=== PATIENT | female | born 1940 | race Caucasian/White ===

== ENCOUNTER → 2022-02-15 11:40 | Outpatient (CLI) | payer MEDICARE, OTHER, SELFPAY ==
[2022-02-15 13:12] LABS: COVID19 -Nasal RAPID POSITIVE (Negative)
== END ==
PROVIDERS: Physician Assistant Medical; PCP Family Medicine; Referring Provider Orthopaedic Surgery; Visit Provider Orthopaedic Surgery
DX: U07.1 COVID-19 (principal)
CPT/HCPCS: 87635; C9803

== ENCOUNTER → 2022-04-04 10:42 | Outpatient (CLI) | payer MEDICARE, OTHER, SELFPAY ==
[2022-04-04 13:54] LABS: COVID19 -Nasal RAPID Negative (Negative)
== END ==
PROVIDERS: PCP Family Medicine; Referring Provider Orthopaedic Surgery; Visit Provider Orthopaedic Surgery
DX: Z20.822 Contact with and (suspected) exposure to COVID-19 (principal)
CPT/HCPCS: 87635; C9803

== ENCOUNTER 2022-04-06 07:14 | Day surgery (SDC) | payer MEDICARE, OTHER, SELFPAY ==
[2022-04-06] VITALS (14 sets, daily range): BP systolic 109–157; BP diastolic 51–87; PULSE 63–89; RESP 8–17; TEMP 35.4–36.8; O2SAT 95–98; BMI 29.5
--- NOTE | 2022-04-06 | DI.RAD.S_ITS ---
PROCEDURE: XR HIP W PEL IF DONE RT 2V INDICATIONS: POST OP TOTAL RIGHT HIP TECHNIQUE: 2 view(s) of the hip acquired. COMPARISON: [facility], [facility], XR HIP W PEL IF DONE RT 2V, 04/06/2022, 10:00. FINDINGS: Bones: Patient is status post right hip arthroplasty, with hardware components in expected positions. The hip joint appears congruent. The visualized bony structures appear intact. Soft tissues: Overlying postoperative changes are noted. No suspicious soft tissue densities. IMPRESSION: Total right hip arthroplasty in good position Approved by: Wilbur Huang M.D. on 04/06/2022 at 10:23
--- NOTE | 2022-04-06 06:00 | DI.RAD.S_ITS ---
PROCEDURE: XR HIP W PEL IF DONE RT 2V INDICATIONS: ANTERIOR TOTAL RIGHT HIP TECHNIQUE: 5 intraoperative fluoroscopic images obtained. COMPARISON: None. FINDINGS: Intraoperative fluoroscopic images are obtained from right hip arthroplasty. The hardware appears intact. IMPRESSION: Intraprocedural fluoroscopy was provided for guidance and anatomical localization. Please see the procedure report for further details. Dictated by: Lasha Sumner M.D. on 04/06/2022 at 11:12 Approved by: Lasha Sumner M.D. on 04/06/2022 at 11:14
[2022-04-06] MEDS: VANCOMYCIN 1,000 MG/200 ML PIGGYBACK 200 MG IV (08:01)
[2022-04-06] MEDS: LACTATED RINGERS 1,000 ML 42 ML IV (08:05)
[2022-04-06] MEDS: ACETAMINOPHEN 325 MG TABLET 975 MG PO (08:26)
--- NOTE | 2022-04-06 08:37 | PM.PREOP ---
Pre-operative Note COVID-19 COVID-19 status: Negative Interval Note History & Physical reviewed/Exam performed by Physician: Yes Changes to H&P: No
--- NOTE | 2022-04-06 08:39 | P.OP_ITS ---
Operative Date/Time/Diagnoses Date of procedure: 04/06/22 Time of procedure: 08:55 Pre-op diagnosis: Right hip arthritis Post-op diagnosis: same Procedure & Clinicians Procedure: Right total hip arthroplasty anterior approach Same procedure as scheduled: Yes Indications: The patient has had progressively worsening right hip pain with radiographic changes consistent with arthritis. Non-operative management has failed and the patient has requested total hip replacement. The risks, benefits and alternatives to surgery were discussed with the patient prior to proceeding. Risks discussed included, but were not limited to, failure to relieve pain, leg length discrepancy, dislocation, stiffness, infection, nerve damage, deep venous thrombosis, pulmonary embolism, stroke, coma, heart attack, permanent paralysis and , as well as the potential need for eventual revision of the prosthetic. Surgeon: Maribeth Ornelas [employer]vp [employer]: Shaheen Serna Anesthesia Type: Spinal Operative Notes Findings: Severe right hip osteoarthritis, adequate bone instability Closure Type: primary Specimen(s): none sent Prosthetic devices, grafts, tissues, transplants, or devices: Ornelas and Nephew size 50 R3 3 cup, size 4 standard offset anthology, 32 x -3 Oxinium femoral head,two 6.5 mm screws, neutral poly liner Estimated Blood Loss (mL): 250 Blood products transfused: none Procedure in detail: The patient was brought to the operating room. Patient was carefully positioned in the supine position. Time-out was performed and antibiotics were given. Anesthesia was induced. She was positioned in the on the table in order to allow hyperextension of the hip. The right lower extremity was prepped and draped in a standard sterile fashion. An anterior right hip incision was made 1 fingerbreadth lateral to the anterior superior iliac spine and extended distally towards the greater trochanter. Dissection was carried out through skin and subcutaneous tissues. Superficial hemostasis was achieved. The fascia over the tensor fascia prema was defined and incised with a knife. Two Allis clamps were used to grasp the fascia. Tensor fascia prema was retracted laterally. A gelpi retractor was placed. Dissection was carried out down along the neck. The circumflex vessels were carefully identified and cauterized with the Aqua Mantis. There was good visualization of the femoral neck. A Cobra was placed superior to the neck and the gluteus fibers were carefully stripped from that superior aspect of the capsule. A 2nd retractor was placed along the inferior aspect of the neck. The rectus insertion along the capsule was partially released. A 3rd retractor that was then gently placed over the rim of the acetabulum under the rectus. Capsule was carefully incised and released from the intertrochanteric line circumferentially superior to the mid sagittal line and inferiorly to the mid sagittal line until the lesser trochanter was palpable. A tag stitch was placed both in the superior and inferior limb of the capsular insertion. Along the acetabulum capsule was also released up to the mid sagittal 12:00 position. A portion of the labrum was resected. A saw was used to perform an osteotomy at the level of the intertrochanteric line and the junction of the superior femoral neck leaving approximately 1 finger breath of residual inferior neck above the lesser trochanter. A 2nd cut was made along the femoral neck at the base of the head and a napkin ring of neck was removed. Corkscrew was placed in the femoral head and the head was removed without difficulty. Retractors were then repositioned around the acetabulum. Residual labrum was resected and additional osteophytes were removed. A reamer that was 4 mm below the templated size was placed by hand in the acetabulum and it was reamed to centralize the acetabulum. It was then reamed up to 2 under the templated size and fluoroscopy was brought in to confirm the position of the reaming and depth of reaming. I reamed 1 under the anticipated size. A trial cup was placed and noted that it was appropriately sized and fluoroscopy confirmed position and depth. The component was open and inserted without difficulty fluoroscopic imaging was used to confirm that the cup had been adequately seated and was well positioned. It was further stabilized with 2 screws. Neutral poly liner was placed. The cup was tested and noted to be stable. Attention was then directed to the femur. The femur was gently hyperextended additional capsular release was performed as needed in order to allow adequate visualization of the proximal femur with elevation of the femur. Patient was placed in a hyperextended slightly adducted position with maximum external rotation. Box osteotome was used to check for any residual neck as well as sclerotic bone along the trochanter. [place] pepper was placed in the femur. Additional broaching was performed. Canal finder was used to determine the alignment of the canal and position. Size 1 broach was placed. The canal was then appropriately broached up to the templated size as long as there was adequate stability of the broach and serial advancement of the broach without excessive impingement. Specific attention was directed at avoiding varus attempting to direct the distal aspect of the broach more anteriorly and avoiding excessive anteversion. Trial reduction showed acceptable range of motion, good stability, no posterior impingement, oriental orthodox of leg length and appropriate lateral shuck. I also hyperflexed the hip and checked that there was no impingement anteriorly and there was good stability with flexion, adduction and internal rotation. Marcaine and Exparel were injected. The stem was placed without difficulty. Repeat trial reduction and x-ray showed acceptable overall position, length, and no evidence of the femoral fracture. Final head was placed. Wound was meticulously irrigated with normal saline. The hip was reduced and additional Exparel and Marcaine were injected. The capsule was closed with interrupted nonabsorbable sutures. The fascia of the tensor was closed with interrupted and running Vicryl. No drain was placed. Any tensor fascia prema muscle that appeared to be contused or injured which was a minimal amount was carefully resected. Capsule around the tensor was injected with Exparel and Marcaine. The skin was closed with barbed stitches for the subcutaneous tissue and skin. We also used surgical glue. The wound was dressed sterilely. Brief Betadine soak was also used and was meticulously irrigated with normal saline. Patient was transferred to recovery room in satisfactory condition. Complications: none Post-operative Condition: stable Disposition: Acute Care Plan for aftercare: The patient will be maintained on a standard total hip replacement protocol with weight bearing as tolerated and anterior hip precautions. The patient will receive Aspirin and sequential compression devices for DVT prophylaxis. The patient will be discharged home when safe for the home environment.
[2022-04-06] MEDS: CEFAZOLIN 2 GM/100 ML PREMIX 100 ML IV ×2 (09:05→17:06)
[2022-04-06] MEDS: TRANEXAMIC ACID 1,000 MG VIAL 1000 MG INJ ×2 (09:11→10:34)
[2022-04-06] MEDS: BUPIVACAINE LIPOSOME 266 MG/20 ML VIAL INJ (09:29)
[2022-04-06] MEDS: SODIUM CHLORIDE IRRIG SOLUTION 250 ML, POVIDONE-IODINE SPONGE STICKS 1 APPLIC IRR (09:36)
[2022-04-06] MEDS: BUPIVACAINE 0.5% W/ EPI (PF) 30 ML VIAL INJ (09:39)
[2022-04-06] MEDS: SODIUM CHLORIDE 0.9% FLUSH 30 ML IV (09:42)
--- NOTE | 2022-04-06 09:50 | SUR.OPER ---
Supine on padded Pitts table with bilateral legs secured in padded positioning boots and suspended in positioning spars, Bilateral feet wrapped in cast padding and coban then placed in spar boots, operative leg in traction per surgeon. Head on one pillow. Arm on non-operative side secured on padded armboard <90 degrees abduction. Arm on operative side padded and resting across chest then secured with tape over sheet. Padded perineal post in place per surgeon.
--- NOTE | 2022-04-06 11:29 | SUR.PHASEI ---
Floor RN unavailable for report. Patient stable and discharged from PACU
--- NOTE | 2022-04-06 11:52 | SUR.PHASEI ---
Report called to GARRETT Hughes.
--- NOTE | 2022-04-06 12:04 | SUR.PHASEI ---
Patient transferred to the floor with her belongings bag. Report given to Saul Mock IV saline locked. VS stable. Dressing CDI.
--- NOTE | 2022-04-06 12:40 | PT.IIE ---
Current Diagnoses Unilateral primary osteoarthritis, right hip (04/06/22) Surgery Performed Operation Date: 04/06/22 08:45 Actual Procedures p Total Hip Arthroplasty/Anterior Approach(Right) - Maribeth Ornelas MD Surgical History (Last Updated 01/25/22 @ 09:18 by Alondra Dey, RN) History of ankle surgery Hx of bilateral cataract extraction Hx of tonsillectomy Medical History (Last Updated 01/25/22 @ 09:21 by Alondra Dey RN) Afib COVID-19 virus infection (01/15/22) HTN (hypertension) Impaired hearing Osteoarthritis Tremor (~07/2021) Physical Therapy Inpatient Evaluation/Re-Eval M1 PT/OT-IP Prior Functional Status Start: 04/06/22 13:51 Freq: NEEDED Status: Active Protocol: Document 04/06/22 12:40 AB (Rec: 04/06/22 14:03 AB [id number]) Medical Review Prior Functional Status Medical History Reviewed Yes Communication able to make needs known but needs time to respond Mobility and Gait pt stated that she is independent with all mobilities and ambulation without AD Social History Household Members significant other Living Arrangements House Number of Floors (Floors) One Floor Number of Stairs To Enter/Railing? 2 steps L rail ascending to enter the house Home Environment Standard Height Toilet,High Toilet,Walk in Shower,Built-In Shower Seat Home Equipment Front Wheel Walker,Manual Wheelchair,Grab Bars Near Toilet,Grab Bars In Shower M2 PT-IP Current Condition Start: 04/06/22 13:51 Freq: NEEDED Status: Active Protocol: Document 04/06/22 12:40 AB (Rec: 04/06/22 14:03 AB [email or web address]) Physical Therapy Current Condition Current Condition Evaluation Date 04/06/22 Treatment Diagnosis s/p R NGUYEN anterior approach; difficulty in walking Onset Date 04/06/22 M3 PT-IP Subjective Start: 04/06/22 13:51 Freq: NEEDED Status: Active Protocol: Document 04/06/22 12:40 AB (Rec: 04/06/22 14:03 AB [email or web address]) Subjective Physical Therapy Visit Type Type Initial Evaluation Visit Start Time 12:40 Visit Stop Time 13:27 Total Visit Minutes 47 Number of POLITICAL CARTOONIST Visits 0 Physical Therapy Visit Comments Patient Comments pt agreeable to do PT Therapy Pain Assessment Pain Present Pain Present Denied Pain M4 PT-IP Mobility and Gait Start: 04/06/22 13:51 Freq: NEEDED Status: Active Protocol: Document 04/06/22 12:40 AB (Rec: 04/06/22 14:03 AB [email or web address]) PT-Bed Mobility Assessment Supine to Sit Supine to Sit Standby Assistance Sit to Supine Sit to Supine Standby Assistance PT-Transfer Assessment Sit to and From Stand Sit to and from Stand Minimal Assistance,1 Person Assistance,Use of Upper Extremities Equipment Transfer Assistive Device Gait Belt,Front Wheeled Walker Orthotic/Prosthetic Devices or Brace: No Comments Mobility Comments educated pt and spouse regarding anterior hip precautions. pt with difficulty processing information and needs time to respond to questions and instructions. BP in supine: 157/87. completed supine to sit SBA. able to sit on EOB SBA to CGA with cues to keep trunk forward as pt tends to lean backwards. c/o dizziness . BP: 140/85. tolerated 2 more minutes of sitting and BP checked again 133/78. dizziness subsided. completed sit to stand min A and ambulated in room ~ 30 ft using FWW min A and cues. pt requested to go back to bed. BP after ambulation sitting on EOB: 135/78. completed sit to supine SBA but required time to complete and UE assisted RLE for elevating to bed. positioned in bed. call light and table placed within reach. caregiver training set up and spouse will come in tomorrow @ 9am. Gait Assessment Gait Gait Assistance Required: Minimum Assistance Distance (Feet) 30 Able to Maintain Weight Bearing Status Yes During Gait Assistive Devices Assistive Device Gait Belt,Front Wheeled Walker Orthotic/Prosthetic Devices or Brace: No Gait Deviations General Gait Pattern Decreased Stride Length, Decreased Feet Clearance Factors Limiting Gait Function Factors Limiting Gait Function Decreased Activity Tolerance, Decreased Strength,Difficulty Following Directions,Limited Range of Motion,Poor Balance, Poor Safety Awareness PT-Balance Assessment Sitting Balance and Reactions Static Sitting Balance Ability Good Dynamic Sitting Balance Ability Fair Standing Balance and Reactions Static Standing Balance Ability Fair Dynamic Standing Balance Ability Fair Device Used FWW M5 PT-IP Objective Assessments Start: 04/06/22 13:51 Freq: NEEDED Status: Active Protocol: Document 04/06/22 12:40 AB (Rec: 04/06/22 14:03 AB [email or web address]) Orientation Orientation/Cognition Level of Alertness Confusional State Orientation Name,Place,Situation Language Function Ability Hard of Hearing Safety Awareness Decreased Safety Awareness Memory Description Short Term Impaired Gross Range of Motion Lower Extremity ROM Assessment Within Functional Limits Strength Lower Extremity Strength Assessment Right Impaired Hip 3+/5 Knee 4-/5 Muscle Tone Muscle Tone WNL Yes M6 PT-IP Treatment Start: 04/06/22 13:51 Freq: NEEDED Status: Active Protocol: Document 04/06/22 12:40 AB (Rec: 04/06/22 14:03 AB [id number]) Physical Therapy Treatment Education Education Provided Precautions,Weight Bearing Status,Post-Op Packet,Safety M7 PT-IP Assessment and Plan Start: 04/06/22 13:51 Freq: NEEDED Status: Active Protocol: Document 04/06/22 12:40 AB (Rec: 04/06/22 14:03 AB [email or web address]) PT Summary Assessment and Plan Potential Rehabilitation Potential Fair Status of Condition at Evaluation Evolving Summary Impairments Pain,ROM,Strength,Balance, Coordination,Sensation,Tone, Cognition,Bed Mobility, Transfers,Gait,Activity Tolerance Assessment Summary pt s/p R NGUYEN anterior approach and just had surgery this morning. currently requiring min A and max cues with mobility using FWW but will likely progress during hospital stay. caregiver training set up for tomorrow at 9 am. will continue to assess progress. Goals Bed Mobility Goal Independent Transfer Goal Independent,Front Wheeled Walker Gait Goal Independent,Front Wheel Walker Gait Distance 200 Other Goals upd/won 2 steps L rail ascending SBA Days to Meet Goals 5 Frequency of Treatment Frequency Of Treatment Twice a Day Treatment Plan Physical Therapy Treatment Plan Bed Mobility Training,Transfer Training,Gait Training, Therapeutic Exercise,Balance Retraining,Post Op Education, Discharge Planning,Hot or Cold Pack,Neuromuscular Re-ed, Coordination Retraining,Manual Therapy Other Recommendations and Next Treatment caregiver trainin/22 @ 9am Focus Precautions Anterior Hip Precautions No Hip Extension,No Hip External Rotation Weight Bearing Status Weight Bearing Status Weight Bear as Tolerated Allowed Weight Bearing Amount (enter % RLE WBAT or #) (%) Recommendations To Nursing Amount of Assist Needed 1 Person Assist Discharge Recommendations PT Discharge Recommendations Home with Assistance, Outpatient PT Transportation Needs at Discharge Private Vehicle
[2022-04-06] MEDS: LACTATED RINGERS 1,000 ML 125 ML IV ×2 (12:48→21:15)
[2022-04-06] MEDS: OXYCODONE IR 5 MG TABLET PO (13:53)
[2022-04-06] MEDS: SODIUM CHLORIDE 0.9% FLUSH 10 ML IV (13:53)
[2022-04-06] MEDS: ACETAMINOPHEN 325 MG TABLET 650 MG PO (17:06)
[2022-04-06] MEDS: IBUPROFEN 400 MG TABLET PO (17:07)
[2022-04-06] MEDS: DOCUSATE 100 MG CAPSULE PO (20:24)
[2022-04-06] MEDS: ASPIRIN EC 81 MG TABLET PO (20:24)
[2022-04-07 00:07] VITALS: BP 103/65; PULSE 64; RESP 17; TEMP 36.2; O2SAT 96
[2022-04-07] MEDS: IBUPROFEN 400 MG TABLET PO ×2 (00:09→05:50)
[2022-04-07] MEDS: ACETAMINOPHEN 325 MG TABLET 650 MG PO ×2 (00:10→05:51)
[2022-04-07] MEDS: CEFAZOLIN 2 GM/100 ML PREMIX 100 ML IV (00:18)
[2022-04-07 04:22] VITALS: BP 127/66; PULSE 60; RESP 17; TEMP 36.4; O2SAT 96
[2022-04-07 06:20] LABS: Hematocrit 34.1 % (36-46); Hemoglobin 11.7 g/dL (12.0-16.0)
--- NOTE | 2022-04-07 08:00 | PM.DS.1 ---
History of Present Illness History of Present Illness Date Patient Seen: 04/07/22 Time Patient Seen: 08:01 Chief complaint: Total Hip Arthroplasty Narrative: Patient is complaining of mild right hip pain. Her is at bedside. She worked with physical therapy yesterday. Overall she is feeling well like to be discharged home today. She denies any new numbness or tingling. Discharge Providers Provider Discharge Date: 04/07/22 Primary care physician: Jet Romero MD Consults: 04/06/22 06:00 Consult to Anesthesiology Routine Comment: Consulting Provider: Anesthesiologist Reason for consultation: Regional block for post operative pain control 04/06/22 12:08 Consult to Discharge Planning Routine Comment: Consult to Physical Therapy Evaluate & Treat Comment: Physician Instructions: post op NGUYEN protocol Consult to Respiratory Therapy Evaluate & Treat Comment: Physician Instructions: Evaluate and treat Discharge provider: Erica Carrera PA-C Summary Hospital Course Discharge Diagnosis: Right hip osteoarthritis Hospital Course: Operative Date/Time/Diagnoses Date of procedure: 04/06/22 Time of procedure: 08:55 Procedure & Clinicians Procedure: Right total hip arthroplasty anterior approach Same procedure as scheduled: Yes Indications: The patient has had progressively worsening right hip pain with radiographic changes consistent with arthritis. Non-operative management has failed and the patient has requested total hip replacement. The risks, benefits and alternatives to surgery were discussed with the patient prior to proceeding. Risks discussed included, but were not limited to, failure to relieve pain, leg length discrepancy, dislocation, stiffness, infection, nerve damage, deep venous thrombosis, pulmonary embolism, stroke, coma, heart attack, permanent paralysis and , as well as the potential need for eventual revision of the prosthetic. Surgeon: Maribeth Ornelas Acute Care Nursing Assistant: Shaheen Serna Anesthesia Type: Spinal Operative Notes Findings: Severe right hip osteoarthritis, adequate bone instability Closure Type: primary Specimen(s): none sent Prosthetic devices, grafts, tissues, transplants, or devices: Ornelas and Nephew size 50 R3 3 cup, size 4 standard offset anthology, 32 x -3 Oxinium femoral head,two 6.5 mm screws, neutral poly liner Estimated Blood Loss (mL): 250 Blood products transfused: none Status at Discharge Cognitive/behavioral status at discharge: at baseline, oriented Functional status at discharge: uses cane/walker Overall status at discharge: patient is progressing back to baseline Exam Vital Signs (past 8 hours): - 04/07/22 00:07 09/22/22 04:22 Temperature 97.1 F L 97.5 F L Pulse Rate 64 60 Respiratory Rate 17 17 Blood Pressure 103/65 127/66 Pulse Oximetry 96 96 Oxygen Flow Rate 0 0 Oxygen Delivery Method Room Air Oxygen Flow Rate 0 Narrative Exam Narrative: Pleasant 81-year-old female, resting comfortably in bed, no acute distress. Her is at bedside. Dressing is clean, dry, intact. Bilateral lower extremity: Motor functions are grossly intact, sensation is grossly intact to light touch, calves are soft and nontender to palpation. Objective Labs Result Diagrams: 04/07/22 06:02 Labs: Laboratory Results - last 24 hr 04/07/22 06:02 Hgb 11.7 L Hct 34.1 L PFSH Medical History Afib COVID-19 virus infection (01/15/22) HTN (hypertension) Impaired hearing Osteoarthritis Tremor (~07/2021) Surgical History History of ankle surgery Hx of bilateral cataract extraction Hx of tonsillectomy Social History household members: significant other Smoking Status: Never smoker alcohol intake: current Discharge Assessment & Plan Assessment and Plan Assessment: Stable status post right total hip arthroplasty, anterior approach -chronic anticoagulation on Eliquis Plan of Treatment: -mobilize with PT. Maintain anterior hip precautions x6 weeks. Weightbearing as tolerated with front wheel walker -continue with multimodal pain management -Eliquis should be sufficient for DVT prophylaxis. Discontinue aspirin ibuprofen once resuming Eliquis. -followup in 10-14 days for postoperative visit -IA home today Discharge Plan Discharge Plan Patient Disposition: Home Discharge orders & Medications Discharge Orders: Discharge (Order); Ordered 04/07/22 Ordered By: Erica Carrera Prescriptions: New acetaminophen 500 mg capsule 500 mg PO Q4H MDD Max 3000 mg per day PRN (Reason: fever or pain) Qty: 90 0RF oxycodone 5 mg Tablet 5 mg PO Q3HR PRN (Reason: Pain, Moderate (4-6)) Qty: 45 0RF docusate sodium 100 mg Capsule 100 mg PO BID PRN (Reason: Constipation from narcotic pain meds) Qty: 30 0RF Continued lisinopril 10 mg Tablet 5 mg PO DAILY Ocuvite Tablet 1 tab PO DAILY Eliquis 5 mg Tablet 5 mg PO BID magnesium oxide 400 mg magnesium Tablet 400 mg PO DAILY naproxen sodium [Aleve] 220 mg Tablet 440 mg PO DAILY PRN (Reason: Pain) Qty: 30 0RF Rx Instructions: Not recommended while taking Eliquis ibuprofen [Motrin IB] 200 mg Tablet 400 mg PO DAILY PRN (Reason: Pain, headaches) Qty: 30 0RF Rx Instructions: Not recommended wall taking Eliquis Follow up/Referrals: Jet Romero MD [Primary Care Provider] - Maribeth Ornelas MD [Physician] - (10-14 days for postoperative visit ) Diet/Activity/Treatments Diet: Diet as Tolerated Other treatments: Dressing/Wound care: -Keep Aquacell dressing in place until postoperative follow-up office visit. -Okay to shower. Keep wound out of direct water stream. No soaking or submerging until all the scabs fall off (approximately 6 weeks). -No lotions, ointments, or scar creams directly to the incision until the wound is healed (4-6 weeks), -Please call the office if dressing becomes wet, soiled, or saturated. Activities: -Maintain anterior hip precautions x6 weeks. -Weight-bearing as tolerated. Use front wheeled walker, and progress to cane when safe. -Continue with home exercises as directed by your physical therapist. -Elevate ?toes above the nose if you have significant swelling in your lower leg. (A wedge pillow is easiest.) -Ice your incision as needed for pain/inflammation/swelling. Protect your skin with a folded pillowcase. Follow-up: -Follow-up with your surgeon or PA in the office in 10-14 days after surgery. -Follow-up with your surgeon 6 weeks postoperatively. Call the office if you have chest pain, shortness of breath, significant swelling that will not resolve with elevating, fever over 101?, significantly worsening pain, or are concerned you might need to go to the Emergency Room. [facility]: [phone] -dental prophylaxis: Please wait for routine dental care until 3 months after hip replacement. We recommend dental prophylaxis (antibiotics) prior to any dental work for the 1st 2 years. -while on Eliquis, NSAIDs (aspirin, ibuprofen, Aleve, naproxen) are not recommended due to increased bleeding risk Skin/Wound/Dressing Care Report to your healthcare provider any signs of infection, such as:: chills, fever, night sweats, unusual drainage and unusual redness Visit Report/Discharge Packet Instructions: DI for Hip Replacement Stand Alone Forms: Surgery Discharge Discharge Data Primary Care Provider: Jet Romero Attending Provider: Maribeth Ornelas VTE Deep Vein Thrombosis/Pulmonary Embolism Present on Admission: No
[2022-04-07 08:10] VITALS: BP 115/72; PULSE 60; RESP 16; TEMP 35.9; O2SAT 95
[2022-04-07 08:39] VITALS: BP 115/72; PULSE 60
[2022-04-07] MEDS: DOCUSATE 100 MG CAPSULE PO (08:39)
[2022-04-07] MEDS: lisinopriL 10 MG TABLET 5 MG PO (08:39)
[2022-04-07] MEDS: OXYCODONE IR 10 MG TABLET PO (08:41)
[2022-04-07] MEDS: MAGNESIUM OXIDE 400 MG TABLET PO (08:41)
[2022-04-07] MEDS: ASPIRIN EC 81 MG TABLET PO (08:42)
--- NOTE | 2022-04-07 09:32 | PT.IPTN ---
Current Diagnoses Unilateral primary osteoarthritis, right hip (04/06/22) Surgery Performed Operation Date: 04/06/22 08:45 Actual Procedures p Total Hip Arthroplasty/Anterior Approach(Right) - Maribeth Ornelas MD Physical Therapy Treatment Note M2 PT-IP Current Condition Start: 04/06/22 13:51 Freq: NEEDED Status: Active Protocol: Document 04/06/22 12:40 AB (Rec: 04/06/22 14:03 AB [id number]) Physical Therapy Current Condition Current Condition Evaluation Date 04/06/22 Treatment Diagnosis s/p R NGUYEN anterior approach; difficulty in walking Onset Date 04/06/22 M3 PT-IP Subjective Start: 04/06/22 13:51 Freq: NEEDED Status: Active Protocol: Document 04/07/22 09:03 KS (Rec: 04/07/22 11:48 KS [id number]) Subjective Physical Therapy Visit Type Type Treatment Note Visit Start Time 09:03 Visit Stop Time 09:32 Total Visit Minutes 29 Notes Spouse present for caregiver training Number of BOOT TURNER Visits 1 Physical Therapy Visit Comments Patient Comments pt agreeable to do PT M4 PT-IP Mobility and Gait Start: 04/06/22 13:51 Freq: NEEDED Status: Active Protocol: Document 04/07/22 09:03 KS (Rec: 04/07/22 11:48 KS [id number]) PT-Bed Mobility Assessment Supine to Sit Supine to Sit Standby Assistance Sit to Supine Sit to Supine Standby Assistance Scooting Scooting to Edge of Bed Standby Assistance PT-Transfer Assessment Sit to and From Stand Sit to and from Stand Contact Guard Assistance,1 Person Assistance,Use of Upper Extremities Equipment Transfer Assistive Device Gait Belt,Front Wheeled Walker Orthotic/Prosthetic Devices or Brace: No Transfers Transfer Destination Bed,Chair,Wheelchair Transfer Technique Pt ambulated w/ FWW Transfer Ability Level of Assist Contact Guard Assistance,1 Person Assistance,Use of Upper Extremities Comments Mobility Comments Pt in chair upon arrival, able to recall hip precautions. arrived for caregiver training, demonstrated gait belt application. Pt sit<> stand w/ FWW CGA and cues and ambulated ~20 ft to opposite side of bed, performed bed mobility SBA. She then ambulated w/ FWW to w/c in hallway. Transported pt to practice stairs in w/c for energy conservation. Pt impulsive and needs cues for sequencing and safety. Pt ascended/descended 3 steps w/ L rail and CGA provided by her . Required several safety cues and leg sequencing reminders. She ambulated additional 40 ft w/ FWW and used w/c for remaining distance. Pt transferred back to chair. Reveiwed exercises, at home safety. Pt and feel safe to return home w/ assisting. Gait Assessment Gait Gait Assistance Required: Standby Assistance,Contact Guard Assist,1 Person Assist Distance (Feet) 40 Able to Maintain Weight Bearing Status Yes During Gait Assistive Devices Assistive Device Gait Belt,Front Wheeled Walker Orthotic/Prosthetic Devices or Brace: No Gait Deviations General Gait Pattern Decreased Stride Length, Decreased Feet Clearance Factors Limiting Gait Function Factors Limiting Gait Function Decreased Activity Tolerance, Decreased Strength,Difficulty Following Directions,Limited Range of Motion,Poor Balance, Poor Safety Awareness Comments Gait Comments Good use of FWW, no LOB. Stair Climbing Assessment Evaluation Level of Assist On Stairs Contact Guard Assistance,1 Person Assistance Devices Stair Climbing Assistive Devices Left Railing Technique/Endurance Stair Climbing Direction Ascend and Descend Stair Climbing Technique Step to Step Number of Steps Climbed 3 Stair Climbing Set # Repetitions (reps) 1 Comments Stair Climbing Comments Pt required cues for step to pattern, leg sequencing, and safety. She is somewhat impulsive and eager to return home which limits her safety. Pt able to respond well to cues to slow down and take one step at a time. Her was able to assist her in completing 3 steps w/ L rail, step to pattern CGA. PT-Balance Assessment Sitting Balance and Reactions Static Sitting Balance Ability Good Dynamic Sitting Balance Ability Good Standing Balance and Reactions Static Standing Balance Ability Good Dynamic Standing Balance Ability Fair Device Used FWW M5 PT-IP Objective Assessments Start: 04/06/22 13:51 Freq: NEEDED Status: Active Protocol: Document 04/06/22 12:40 AB (Rec: 04/06/22 14:03 AB [id number]) Orientation Orientation/Cognition Level of Alertness Confusional State Orientation Name,Place,Situation Language Function Ability Hard of Hearing Safety Awareness Decreased Safety Awareness Memory Description Short Term Impaired Gross Range of Motion Lower Extremity ROM Assessment Within Functional Limits Strength Lower Extremity Strength Assessment Right Impaired Hip 3+/5 Knee 4-/5 Muscle Tone Muscle Tone WNL Yes M6 PT-IP Treatment Start: 04/06/22 13:51 Freq: NEEDED Status: Active Protocol: Document 04/07/22 09:03 KS (Rec: 04/07/22 11:48 KS [id number]) Physical Therapy Treatment Exercises Exercises Ankle Pumps,Gluteal Sets,Quad Sets,Heel Slides,Straight Leg Raises Education Education Provided Precautions,Weight Bearing Status,Post-Op Packet,Safety Other Treatments Other Treatment Performed Completed caregiver training w / pts . M7 PT-IP Assessment and Plan Start: 04/06/22 13:51 Freq: NEEDED Status: Active Protocol: Document 04/07/22 09:03 KS (Rec: 04/07/22 11:48 KS [id number]) PT Summary Assessment and Plan Potential Rehabilitation Potential Good Summary Impairments Pain,ROM,Strength,Balance, Coordination,Sensation,Tone, Cognition,Bed Mobility, Transfers,Gait,Activity Tolerance Progress Towards Goals Progressing Toward Goals Assessment Summary Pt SBA to [facility] for mobility, able to perform bed mobility, transfers, ambulation, and stair training w/ her providing assistance. She is impulsive and requires safety cues as well as sequencing cues on stairs. Pt and feel eager to return home. She will benefit from OPPT to improve strength and functional mobility independence. Goals Bed Mobility Goal Independent Transfer Goal Independent,Front Wheeled Walker Gait Goal Independent,Front Wheel Walker Gait Distance 200 Other Goals upd/won 2 steps L rail ascending SBA Days to Meet Goals 5 Frequency of Treatment Frequency Of Treatment Twice a Day Treatment Plan Physical Therapy Treatment Plan Bed Mobility Training,Transfer Training,Gait Training, Therapeutic Exercise,Balance Retraining,Post Op Education, Discharge Planning,Hot or Cold Pack,Neuromuscular Re-ed, Coordination Retraining,Manual Therapy Precautions Anterior Hip Precautions No Hip Extension,No Hip External Rotation Weight Bearing Status Weight Bearing Status Weight Bear as Tolerated Allowed Weight Bearing Amount (enter % RLE WBAT or #) (%) Recommendations To Nursing Amount of Assist Needed 1 Person Assist Discharge Recommendations PT Discharge Recommendations Home with Assistance, Outpatient PT Transportation Needs at Discharge Private Vehicle
--- NOTE | 2022-04-07 10:38 | CM.DANOTE ---
DCP: Case received, EMR reviewed and met with patient. Significant other, Kojo Wynne, was also at bedside. Introduced self and role. Was able to obtain information regarding patient's baseline activity status prior to her surgery. DCP assessment completed with information currently available. Patient is an 81 year old female who admitted yesterday morning to the care of the orthopedic team. PCP: Dr. Romero. Payer: confirmed: Medicare/[employer]. Patient came to the hospital for a surgical procedure. Patient had right total hip arthroplasty, anterior approach. Patient has history of right hip arthritis. Met with patient and significant other in her room. She was up walking with her walker, looking forward to going home. Confirmed that she resides in [place] with significant. At her baseline, she is independent. P: Patient is to be discharging home today after her therapy is completed. Rosemary Alvarez RN/Position Classification Manager Discharge Planning/Care Management CM Discharge Assessment Start: 04/07/22 10:36 Freq: Status: Active Protocol: Document 04/07/22 10:37 (Rec: 04/07/22 10:37 [id number]) Discharge Planning Assessment Assigned Freelance Digital Project Manager Rosemary Alvarez RN/Position Classification Manager Advance Directives? Yes Advance Directives on File Yes History Provided By Patient,Medical Record Prior Living Arrangements House Household Members significant other Type of transporation used prior to Drives own vehicle admit Independent with ADL's Yes Is patient alert and oriented? Yes Caregiver for Another No Patient/Family Preference OP PT Therapy Barriers to Discharge No Discharge Plan Home Transportation Arrangement Significant other Referrals Initiated None needed Whiteboard Updated in Patient Room with Yes name and ext. # of Freelance Digital Project Manager Review Status In Process Next Review Type Continued Stay Review Pre-Anesthesia Assessment Start: 03/29/22 14:46 Freq: Status: Active Protocol: Document 03/29/22 14:46 CAB (Rec: 03/29/22 14:58 CAB [id number]) Pre-Anesthesia Assessment PAC Comment PAC phone assessment completed 01/25/22. Surgery was cancelled due to pt COVID +. She declines new phone assessment, states no changes in medical/medication history and has no questions/concerns with upcoming surgery. Chart review only Patient Information Reviewed Via Chart Review Comment COVID screen not identified Primary Care Provider Jet Romreo Seen Specialist in Last 12 Months Yes Specialist Seen Orthopedist Primary Language Telugu Aegis Console Operator Track Required No Height 5 ft 1 in Hearing Ability Hard of Hearing,Use of Hearing Aid Visual Assist None Dentition Type Teeth, Natural Present Barriers to Learning None Hx Anesthesia Reactions No Hx Family Anesthesia Reaction No Hx Malignant Hyperthermia No Hx Blood Transfusions No Anesthesia Review Requested No Applications Instructor No alcohol intake current alcohol intake frequency 0-2 drinks per day Smoking Status Never smoker Substance Use Type does not use Pain Present Pain Reported Musculoskeletal Symptoms Difficulty Walking,Joint Pain, Limited Range of Motion History of Falling (Recent or History of No ) Patient is completely paralyzed or No completely immobile Mental Status Oriented to own ability Comment Balance issues Is patient on oxygen? No Does patient have HILL/SOB No Hx Sleep Apnea No Currently Taking a Beta Nimisha No Can You Climb a Flight of Stairs Without No SOB Hx Chest Pain No Hx SOB No Hx Syncope or Dizziness No Anti-Coagulant Therapy Yes: Eliquis-unknown what instructions given to patient Has a Manager [facility] Cardiac Testing No Hx Pacemaker/ICD No Pacemaker Rep Required? 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 Received a COVID vaccine? Yes: Has not received either booster Marital Status / Lives With significant other Prior Living Arrangements House Number of Floors (Floors) One Floor Patient Discharge Plan Description Return Home Feels Safe in Current Environment Yes Been Physically Hurt or Threatened By a No Person in Current Environment Do you have thoughts of harming yourself None or others? Are you currently considering suicide? No Do you have a plan to hurt yourself or No Plan others? Do You Have Any Spiritual Beliefs That No May Affect Your HC Choices? Do You Have Any Cultural Practices That No May Affect Your HC Choices? Comment Jain Who Can We Speak to About Patient's Care Kojo (S.Morenita) only Identifying Code for Release of Patient Temo Dileep Renteria Health Care Proxy/Next of Kin Kojo (S.O.) Health Care Proxy Emergency Contact Name Kojo (S.OPaty) Emergency Contact Advance Directives? Yes Power of Orthotist Yes Power of Orthotist Name Kojo (S.O.) Power of Orthotist
--- NOTE | 2022-04-07 10:59 | PC.NURSE ---
DayShift Pt left unit at 1100 with all personal belongings, paperwork given and signed all questions answered. Pt left via wheelchair and personal vehicle to home, accompanied by spouse. Pt stated pain is well controlled and Pt verbalized will f/u with [facility] as per MD directions.
== END 2022-04-07 11:49 | disposition home or self-care (01) ==
LOC: OR 07:25 → AC 10:12
PROVIDERS: PCP Family Medicine; Referring Provider Orthopaedic Surgery; Visit Provider Orthopaedic Surgery
PROC: (CPT 27130; principal; 2022-04-06 08:45)
DX: M16.11 Unilateral primary osteoarthritis, right hip (principal); I48.0 Paroxysmal atrial fibrillation; Z79.01 Long term (current) use of anticoagulants
CPT/HCPCS: 27130; 36415; 73502; 76000; 85014; 85018; 97116; 97162; 97530; C1776; C9290; J0690; J1100; J1170; J2250; J2405; J2704; J3010

== ENCOUNTER → 2023-06-01 08:57 | Outpatient (CLI) | payer MEDICARE, OTHER, SELFPAY ==
[2022-04-06 12:23] VITALS: BMI 29.5
--- NOTE | 2023-06-01 | DI.MRI.S_ITS ---
PROCEDURE: MR HEAD/BRAIN WO CON INDICATIONS: Dizziness and giddiness TECHNIQUE: Non-contrast axial T1 spin echo, axial T2 fast spin echo, sagittal and axial FLAIR, coronal T2 fast spin echo, axial gradient echo, axial diffusion and ADC through the brain. COMPARISON: None. FINDINGS: Image quality: Excellent. CSF spaces: Ventricles appear symmetric in size and shape. Basal cisterns are patent. No extra-axial fluid collections. Brain: No intracranial bleeds or mass effects. There is cerebral volume loss for age. There are periventricular and deep white matter chronic small vessel ischemic changes. Brainstem appears normal. Diffusion-weighted images show no acute ischemic insults. No chronic ischemic insults. Normal intravascular flow voids are present. Skull and face: Calvarial bone marrow is normal in signal. Orbits are normal Bilateral lens replacements. Otherwise, the orbits are unremarkable. Sinuses: Mucosal thickening of the paranasal sinuses, most pronounced in the inferior maxillary sinuses bilaterally.. The mastoids are clear. IMPRESSION: 1. No cause for patient's symptoms is identified. 2. No acute intracranial abnormalities. 3. Age-related global volume loss and chronic microvascular ischemic changes. Dictated by: Robert Baer M.D. on 06/01/2023 at 12:12 Approved by: Robert Baer M.D. on 06/01/2023 at 12:15
== END ==
PROVIDERS: PCP Family Medicine; Referring Provider Family Medicine; Visit Provider Family Medicine
DX: R42 Dizziness and giddiness (principal); R26.89 Other abnormalities of gait and mobility; G25.2 Other specified forms of tremor
CPT/HCPCS: 70551